=== PATIENT | male | born 1940 | race Caucasian/White ===

== ENCOUNTER 2019-08-20 18:58 | Inpatient (IN) | payer MEDICARE, OTHER ==
[~2019-08-20] VITALS: Ht 182.9 cm; Wt 65.8 kg
[2019-08-20 19:47] LABS: BASOPHILS % (AUTO) 0.6 % (0.0-2.0); HEMATOCRIT 29 % (39-51); HEMOGLOBIN 9.1 g/dL (13.5-17.5); LYMPHOCYTES # (AUTO) 0.8 /CMM (0.8-4.8); LYMPHOCYTES % (AUTO) 12.2 % (20.0-44.0); MEAN CORPUSCULAR HGB CONC 32 g/dl (31.0-36.0); MEAN CORPUSCULAR VOLUME 80 fL (80-96); MONOCYTES # (AUTO) 0.3 /CMM (0.1-1.30); NEUTROPHILS # (AUTO) 5.5 /CMM (1.8-8.9); NEUTROPHILS % (AUTO) 83.2 % (43.0-81.0); PLATELET COUNT (AUTO) 198 /CMM (150-450); RED BLOOD CELL COUNT(AUTO) 3.61 MIL/uL (4.5-6.0); WHITE BLOOD COUNT (AUTO) 6.6 K/uL (4.3-11.0)
[2019-08-20 19:56] LABS: CALCIUM, SERUM 8.9 mg/dL (8.5-10.1); CARBON DIOXIDE 26 mmol/L (21-32); CHLORIDE 103 mmol/L (98-107); CREATININE 1.9 mg/dL (0.6-1.3); GLUCOSE 252 mg/dL (74-106); POTASSIUM 3.9 mmol/L (3.5-5.1); SODIUM SERUM 139 mmol/L (136-145); UREA NITROGEN, BLOOD 52 mg/dL (7-18)
[2019-08-20 20:01] LABS: ALANINE AMINOTRANSFERASE 42 U/L (12-78); ALKALINE PHOSPHATASE 69 U/L (46-116); ASPARTATE AMINOTRANSFERASE 40 U/L (15-37); BILIRUBIN,DIRECT 0.4 mg/dL (0.0-0.2)
--- NOTE | 2019-08-20 20:02 | NUR ---
PATIENT CAME E R BED 4 C/O UNRESPONSIVE PER EMS REPORT. PATIENT IS CONTRACTED. ALERT AND AWAKE X0. NO SOB. BREATHING EVENLY AND UNLABORED ON ROOM AIR. CONNECTED TO MONTIOR.
[2019-08-20 20:03] LABS: APPEARANCE,URINE Slightly Cloudy (CLEAR); BILIRUBIN,URINE Negative (NEGATIVE); BLOOD, URINE Moderate Ery/uL (NEGATIVE); COLOR,URINE Dark (YELLOW); KETONES,URINE Negative (NEGATIVE); LEUKOCYTE ESTERASE ,URINE Large (NEGATIVE); NITRITE, URINE Negative (NEGATIVE); PH,URINE 5.5 (5.0-8.0); PROTEIN,URINE 100 mg/dl (NEGATIVE); UGLUCOSE Negative (NEGATIVE); UROBILINOGEN,URINE 0.2 EU/dL (0.2)
--- NOTE | 2019-08-20 20:04 | NUR ---
BLOOD AND URINE COLLECTED AND SENT TO LAB.
--- NOTE | 2019-08-20 20:05 | NUR ---
PATIENT TAKEN TO CT.
--- NOTE | 2019-08-20 20:10 | NUR ---
PATIENT RETURNED FROM CT.
[2019-08-20 20:15] LABS: SERUM AMMONIA 17 umol/L (11-32)
[2019-08-20 20:16] LABS: BACTERIA,URINE Many /HPF (None Seen); SQUAMOUS EPITHELIAL CELL,UR Moderate /HPF (None Seen); WBC,URINE 21-50 /HPF (0-3)
[2019-08-20 20:17] LABS: YEAST,URINE Moderate /HPF (None Seen)
[2019-08-20 20:27] LABS: THYROID STIMULATING HORMONE 4.942 uIU/mL (0.358-3.74)
[2019-08-20] MEDS ORDERED: PIPERACILLIN /TAZOBACTAM 3.375 G VIAL IV ONE (20:28)
--- NOTE | 2019-08-20 20:29 | NUR ---
DAUGHTER'S NUMBER , OTHER DAUGHTER
[2019-08-20] MEDS ORDERED: PIPERACILLIN /TAZOBACTAM 3.375 G in IV D5W 50 ML IV ONE (20:30)
[2019-08-20] MEDS ORDERED: MORPHINE SULFATE INJ 2 MG/ML DISP.SYRIN IV PRN (21:30)
[2019-08-20] MEDS ORDERED: MAG HYDROX/AL HYDROX/SIMETH 30 ML UDC PO PRN (21:30)
[2019-08-20] MEDS ORDERED: TEMAZEPAM 15 MG CAPSULE PO PRN (21:30)
[2019-08-20] MEDS ORDERED: DEXTROSE 50%-WATER 50 ML DISP.SYRIN IV PRN (21:30)
[2019-08-20] MEDS ORDERED: HYDROCODONE/APAP 5/325MG 1 EACH TABLET PO PRN (21:30)
[2019-08-20] MEDS ORDERED: MAGNESIUM HYDROXIDE 30 ML UDC PO PRN (21:30)
[2019-08-20] MEDS ORDERED: Z GUARD REMEDY 2 OZ OINT TP PRN (21:30)
[2019-08-20] MEDS ORDERED: ONDANSETRON HCL/PF 4 MG/2 ML VIAL IVP PRN (21:30)
--- NOTE | 2019-08-20 22:50 | NUR ---
REPORT GIVEN TO JUANA VIEYRA FOR HUNTER.
--- NOTE | 2019-08-21 00:16 | NUR ---
[facility]ma in [facility] - 08/21/19 at 0017 by DANISH FIELD ARTILLERY OFFICER TO TECH
[2019-08-21 00:21] VITALS: BP 131/69
--- NOTE | 2019-08-21 00:21 | NUR ---
MS/RN NEW ADMISSION NOTES/RN RECEIVED PATIENT FROM ER ON A GURNEY ACCOMPANIED BY RN . NON VERBAL, ON ROOM AIR, RESPIRATIONS EVEN AND UNLABORED, WAS BROUGHT FROM HOME DUE TO AMS, PATIENT IS STILL UNABLE VERBALIZE NEEDS BUT OPENS EYES, EXTENSIVE ASSISTANCE PATIENT HAS CONTRACTED BUE AND WEAK LEGS, INCONTINENT, WITH SOME REDNESS ON HEEL. 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 DX FOR UTI SECONDARY TO HANG AND FAILURE TO THRIVE, IV ON RIGHT WRIST. BELONGINGS CHECK, WINNIE GARLAND MD, WILL MONITOR.
--- NOTE | 2019-08-21 00:27 | NUR ---
PATIENT IS TRANSFERRED TO ROOM.
[2019-08-21 00:30] VITALS: BP 131/69
[2019-08-21] MEDS: BLOOD SUGAR DIAGNOSTIC 1 EACH STRIP IN SCH ×5 (01:19→21:02)
--- NOTE | 2019-08-21 01:23 | NUR ---
BLOOD SUGAR CHECK AT 272, PATIENT CAN OPEN EYES BUT NOT FULLY AWAKE.
[2019-08-21] MEDS ORDERED: PIPERACILLIN /TAZOBACTAM 3.375 G VIAL IV ONE (01:26)
[2019-08-21] MEDS: IV NS 0.9% 1,000 ML IV PRN ×2 (01:33→22:09)
[2019-08-21] MEDS ORDERED: ZOSYN IVPB 3.375 G in IV D5W 50ml IV SCH (02:00)
--- NOTE | 2019-08-21 06:35 | NUR ---
MS/RN CLOSING NOTES PATIENT IN BED, ABLE TO SLEEP DURING THE NIGHT, NON VERBAL AND OPENS EYE. CONTRACTED WITH BUE AND ATTENDED TO ALL NEEDS. MONITORED FOR ANY CHANGES AND REPORT FOR ANY CHANGES. BED LOCKED, CALL LIGHTS WITHIN REACH. WILL ENDORSE TO AM RN FOR HUNTER. IV NS AT 100 ML INFUSING ON RIGHT WRIST. KEPT COMFORTABLE.
[2019-08-21 07:03] LABS: BASOPHILS % (AUTO) 0.3 % (0.0-2.0); HEMATOCRIT 28 % (39-51); HEMOGLOBIN 8.9 g/dL (13.5-17.5); LYMPHOCYTES # (AUTO) 1.4 /CMM (0.8-4.8); LYMPHOCYTES % (AUTO) 19.3 % (20.0-44.0); MEAN CORPUSCULAR HGB CONC 32 g/dl (31.0-36.0); MEAN CORPUSCULAR VOLUME 80 fL (80-96); MONOCYTES # (AUTO) 0.6 /CMM (0.1-1.30); MONOCYTES % (AUTO) 8.4 % (2.0-12.0); NEUTROPHILS # (AUTO) 5.1 /CMM (1.8-8.9); PLATELET COUNT (AUTO) 168 /CMM (150-450); RED BLOOD CELL COUNT(AUTO) 3.51 MIL/uL (4.5-6.0); WHITE BLOOD COUNT (AUTO) 7.1 K/uL (4.3-11.0)
--- NOTE | 2019-08-21 07:27 | NUR ---
rn opening notes Patient received on room air, no sob noted, patient asleep at this time. non verbal. R wrist 20 present with IV NS @ 100 ml per hour. Bed at the lowest setting, call light within reach, side rails up x2.
[2019-08-21 07:37] LABS: CALCIUM, SERUM 8.6 mg/dL (8.5-10.1); CARBON DIOXIDE 22 mmol/L (21-32); CHLORIDE 105 mmol/L (98-107); CREATININE 1.9 mg/dL (0.6-1.3); GLUCOSE 284 mg/dL (74-106); MAGNESIUM 2.1 mg/dL (1.8-2.4); PHOSPHORUS 3.4 mg/dL (2.5-4.9); POTASSIUM 3.9 mmol/L (3.5-5.1); SODIUM SERUM 140 mmol/L (136-145); UREA NITROGEN, BLOOD 53 mg/dL (7-18)
[2019-08-21 08:00] VITALS: BP 152/63
[2019-08-21 08:13] LABS: BAND % (MANUAL) 4 % (0.0-5.0); LYMPHOCYTES % (MANUAL) 18 % (16-48); MONOCYTES % (MANUAL) 4 % (0-11.0); NEUTROPHILS % (MANUAL) 73 (42-76); PROMYELOCYTES % 1 % (0-0)
[2019-08-21] MEDS: PIPERACILLIN /TAZOBACTAM 3.375 G in IV D5W 100 ML IV SCH ×2 (08:54→16:03)
[2019-08-21 09:11] LABS: CHOLESTEROL 99 mg/dL (<200); HDL CHOLESTEROL 21 mg/dL (40-60); LDL 57 mg/dL (0-99); TRIGLYCERIDES 136 mg/dL (30-150)
[2019-08-21] MEDS ORDERED: FURO40TA5 PO (09:51)
[2019-08-21] MEDS ORDERED: INSU100I26 SQ (09:51)
[2019-08-21] MEDS ORDERED: CLOP75TA15 (09:51)
[2019-08-21] MEDS ORDERED: ASPI-1169 PO (09:51)
[2019-08-21] MEDS ORDERED: INSU3INS3 SQ (09:51)
--- NOTE | 2019-08-21 09:52 | NUR ---
MOULDER OPERATOR/MED RECON HOME MEDICATION INFO UPDATED. [phone][facility]
--- NOTE | 2019-08-21 11:44 | NUR ---
rn notes Patient awaiting for speech eval. Unable to feed patient due to AMS. battery charger conveyor line aware of no feeding due to this. No insulin given due to unable to eat at this time.
[2019-08-21 16:00] VITALS: BP 147/56
--- NOTE | 2019-08-21 16:34 | NUR ---
rn notes BG of 333, kiln charger nurse aware. Cannot give insulin due to patient unable to swallow. Swallow eval still pending.
--- NOTE | 2019-08-21 18:18 | NUR ---
rn closing notes patient remains a/o x0 at this time, came here for AMS and remains AMS. NPO till swallow eval is done due to AMS. BG at 300+ and charge nurse is aware and agrees to keep patient NPO and not give coverage until swallow is given. IV NS @ 100 ml per hour R wrist 20 present. Bed at the lowest setting, call light within reach, side rails up x2. Will give report to NOC RN for HUNTER bedside.
[2019-08-21 20:47] VITALS: BP 144/57
[2019-08-21] MEDS: INSULIN REGULAR, HUMAN 100 UNIT/ML 3 ML VIAL SQ PRN (21:23)
[2019-08-21] MEDS ORDERED: DEXTROSE 50%-WATER 50 ML DISP.SYRIN IV PRN (21:30)
[2019-08-21] MEDS ORDERED: INSULIN REGULAR, HUMAN 100 UNIT/ML 3 ML VIAL SQ PRN (21:30)
--- NOTE | 2019-08-21 21:30 | NUR ---
MS/MARKETING AND COMMUNICATIONS OFFICER - MED NOTE SPOKE WITH DR. WINNIE DIALLO TO COVER PT WITH INSULIN PER SLIDING SCALE. WILL CONTINUE TO MONITOR BLOOD GLUCOSE.
[2019-08-21] MEDS ORDERED: BLOOD SUGAR DIAGNOSTIC 1 EACH STRIP IN SCH (22:00)
[2019-08-22] MEDS: PIPERACILLIN /TAZOBACTAM 3.375 G in IV D5W 100 ML IV SCH ×3 (00:59→16:22)
[2019-08-22] MEDS: BLOOD SUGAR DIAGNOSTIC 1 EACH STRIP IN SCH ×4 (06:32→23:52)
[2019-08-22] MEDS: INSULIN REGULAR, HUMAN 100 UNIT/ML 3 ML VIAL SQ PRN ×3 (06:35→17:43)
[2019-08-22 07:39] LABS: BASOPHILS % (AUTO) 0.5 % (0.0-2.0); EOSINOPHILS % (AUTO) 0.1 % (0.0-6.0); HEMATOCRIT 25 % (39-51); HEMOGLOBIN 8.1 g/dL (13.5-17.5); LYMPHOCYTES # (AUTO) 0.9 /CMM (0.8-4.8); LYMPHOCYTES % (AUTO) 18.3 % (20.0-44.0); MEAN CORPUSCULAR HGB CONC 32 g/dl (31.0-36.0); MEAN CORPUSCULAR VOLUME 79 fL (80-96); MONOCYTES # (AUTO) 0.3 /CMM (0.1-1.30); MONOCYTES % (AUTO) 5.9 % (2.0-12.0); NEUTROPHILS # (AUTO) 3.6 /CMM (1.8-8.9); NEUTROPHILS % (AUTO) 75.2 % (43.0-81.0); PLATELET COUNT (AUTO) 144 /CMM (150-450); RED BLOOD CELL COUNT(AUTO) 3.21 MIL/uL (4.5-6.0); WHITE BLOOD COUNT (AUTO) 4.7 K/uL (4.3-11.0)
[2019-08-22 08:00] VITALS: BP 113/59
--- NOTE | 2019-08-22 08:00 | NUR ---
MS RN OPENING NOTES RECEIVED PATIENT IN BED, A/0 X0, BREATHING AT ROOM AIR, NO SIGNS OF RESPIRATORY DISTRESS, RIGHT WRIST #20 NS AT 100ML/HR, INFUSING WELL, SIDE RAILS UP.
[2019-08-22 08:08] LABS: ALANINE AMINOTRANSFERASE 31 U/L (12-78); ALBUMIN 2.4 g/dL (3.4-5.0); ALKALINE PHOSPHATASE 60 U/L (46-116); ASPARTATE AMINOTRANSFERASE 31 U/L (15-37); BILIRUBIN,TOTAL 0.6 mg/dL (0.2-1.0); CALCIUM, SERUM 8.4 mg/dL (8.5-10.1); CARBON DIOXIDE 23 mmol/L (21-32); CHLORIDE 111 mmol/L (98-107); CREATININE 1.8 mg/dL (0.6-1.3); GLUCOSE 291 mg/dL (74-106); MAGNESIUM 2.3 mg/dL (1.8-2.4); PHOSPHORUS 2.6 mg/dL (2.5-4.9); POTASSIUM 3.3 mmol/L (3.5-5.1); SODIUM SERUM 144 mmol/L (136-145); TOTAL PROTEIN, SERUM 7.1 g/dL (6.4-8.2); UREA NITROGEN, BLOOD 46 mg/dL (7-18)
[2019-08-22 08:10] LABS: CREATINE KINASE, TOTAL 62 U/L (39-308)
[2019-08-22] MEDS ORDERED: POTASSIUM CHLORIDE 20 MEQ TAB.PRT.SR PO SCH (10:30)
[2019-08-22] MEDS: POTASSIUM CL. PREMIX PERIPHER. 50 ML IV SCH ×2 (12:46→14:16)
[2019-08-22] MEDS ORDERED: DEXTROSE 50%-WATER 50 ML DISP.SYRIN IV PRN (13:00)
[2019-08-22 16:00] VITALS: BP 132/59
--- NOTE | 2019-08-22 18:59 | NUR ---
MS RN CLOSING NOTES ENDORSED PATIENT TO INSECTICIDE EXPERT NURSE IN BED, OBTUNDED, NON-VERBAL, RESPOND TO STIMULI, BREATHING AT ROOM AIR, NO SIGNS OF RESPIRATORY DISTRESS NOTED, NPO FOR SWALLOW EVAL, RIGHT WRIST #20 NS AT 100ML/HR, INFUSING WELL, NO SIGNS OF REDNESS OR INFILTRATION NOTED, SIDE RAILS UP FOR SAFETY.
[2019-08-22 19:33] LABS: APPEARANCE,URINE CLOUDY (CLEAR); BILIRUBIN,URINE NEGATIVE (NEGATIVE); BLOOD, URINE LARGE Ery/uL (NEGATIVE); COLOR,URINE YELLOW (YELLOW); KETONES,URINE NEGATIVE (NEGATIVE); LEUKOCYTE ESTERASE ,URINE LARGE (NEGATIVE); NITRITE, URINE NEGATIVE (NEGATIVE); PH,URINE 5.5 (5.0-8.0); PROTEIN,URINE 100 mg/dl (NEGATIVE); UGLUCOSE NEGATIVE (NEGATIVE); UROBILINOGEN,URINE 0.2 EU/dL (0.2)
[2019-08-22 19:45] LABS: BACTERIA,URINE 4+ /HPF (None Seen); RBC,URINE 51-80 /HPF (0-2); SQUAMOUS EPITHELIAL CELL,UR 0-2 /HPF (None Seen); WBC,URINE TOO NUMEROUS TO COUN /HPF (0-3)
[2019-08-22 19:46] LABS: CREATININE, URINE 86.8 MG/DL (30.0-125.0); URINE TOTAL PROTEIN 146.7 mg/dL (0-11.9)
[2019-08-22 20:00] VITALS: BP 124/58
--- NOTE | 2019-08-22 20:00 | NUR ---
MS/RN OPENING NOTES RECEIVED PATIENT IN BED, RESTING IN BED ON ROOM AIR, RESPIRATIONS EVEN AND UNLABORED, SKIN WARM TO TOUCH, ABLE TO AROUSE , MONITORING FOR ANY CHANGES. ON IV FLUIDS INFUSING OF NS AT 100ML/HR. RECEIVED ENDORSEMENT FROM AM RN FOR HUNTER. PATIENT AWAITING FOR SWALLOW EVAL AT THIS TIME. BED LOCKED, CALL LIGHTS WITHIN REACH. WILL CONTINUE CARE AND MONITOR.
[2019-08-22 20:29] LABS: EOSINOPHIL,URINE None Seen
[2019-08-22] MEDS: IV NS 0.9% 1,000 ML IV PRN (22:19)
[2019-08-23] MEDS: PIPERACILLIN /TAZOBACTAM 3.375 G in IV D5W 100 ML IV SCH ×2 (00:02→08:35)
[2019-08-23] MEDS: BLOOD SUGAR DIAGNOSTIC 1 EACH STRIP IN SCH ×4 (05:11→23:44)
[2019-08-23] MEDS: INSULIN REGULAR, HUMAN 100 UNIT/ML 3 ML VIAL SQ PRN ×4 (05:22→23:46)
--- NOTE | 2019-08-23 06:42 | NUR ---
327-2 MS/RN CLOSING NOTES PATIENT ABLE TO SLEEP DURING THE SHIFT. RESTING COMFORTABLY ON ROOM AIR. IV FLUIDS INFUSING AT 100 ML/HR, IV ANTIBIOTIC ADMINISTERED WITH NO S/S OF ADVERSE REACTION. KEPT COMFORTABLE. TURNED AND REPOSITIONED. ATTENDED TO ALL NEEDS. IV SITE ON RIGHT WRIST PATEENT. BED LOCKED, CALL LIGHTS WITHIN REACH. WILL MONITOR.
--- NOTE | 2019-08-23 07:07 | NUR ---
MS RN OPENING NOTES RECEIVED PT IN BED AWAKE AT THIS TIME. PT IS NON VERBAL, RESPIRATIONS ARE EVEN AND UNLABORED. NO S/S OF ANY ACUTE DISTRESS NOTED. IV ACCES TO RIGHT WRIST #20 INTACT, PATENT AND INFUSING NS AT 100ML/HR, INFUSING WELL, BED IN LOWEST LOCKED POSITION, BED ALARM ON, SIDE RAILS UP, CALL LIGHT WITHIN REACH. WILL CONTINUE TO MONITOR.
[2019-08-23 08:00] VITALS: BP 122/50
[2019-08-23 09:12] LABS: BASOPHILS % (AUTO) 0.6 % (0.0-2.0); EOSINOPHILS % (AUTO) 0.8 % (0.0-6.0); HEMATOCRIT 23 % (39-51); HEMOGLOBIN 7.2 g/dL (13.5-17.5); LYMPHOCYTES # (AUTO) 1.2 /CMM (0.8-4.8); MEAN CORPUSCULAR HGB CONC 32 g/dl (31.0-36.0); MEAN CORPUSCULAR VOLUME 79 fL (80-96); MONOCYTES # (AUTO) 0.3 /CMM (0.1-1.30); MONOCYTES % (AUTO) 5.8 % (2.0-12.0); NEUTROPHILS # (AUTO) 3.2 /CMM (1.8-8.9); NEUTROPHILS % (AUTO) 66.8 % (43.0-81.0); PLATELET COUNT (AUTO) 123 /CMM (150-450); RED BLOOD CELL COUNT(AUTO) 2.87 MIL/uL (4.5-6.0); WHITE BLOOD COUNT (AUTO) 4.8 K/uL (4.3-11.0)
[2019-08-23 09:57] LABS: CARBON DIOXIDE 23 mmol/L (21-32); CHLORIDE 116 mmol/L (98-107); CREATININE 1.7 mg/dL (0.6-1.3); GLUCOSE 194 mg/dL (74-106); MAGNESIUM 2.2 mg/dL (1.8-2.4); PHOSPHORUS 2.2 mg/dL (2.5-4.9); POTASSIUM 3.5 mmol/L (3.5-5.1); SODIUM SERUM 149 mmol/L (136-145); UREA NITROGEN, BLOOD 39 mg/dL (7-18)
--- NOTE | 2019-08-23 11:00 | NUR ---
PT WAS SEEN BY PHILIPP, SPEECH THERAPIST, FOR SWALLOW EVAL. SPEECH THERAPIST ORDERED PUREED AND THICKENED LIQUIDS. DR. BURDICK WAS MADE AWARE. WILL CONTINUE TO MONITOR FOR ASPIRATION PRECAUTIONS
[2019-08-23 11:07] LABS: PTH, INTACT 20 pg/mL (15-65)
[2019-08-23] MEDS ORDERED: K PHOS NEUTRAL 250 MG TABLET PO ONE (11:30)
[2019-08-23] MEDS ORDERED: POTASSIUM PHOSPHATE MM 7.5 MMOL in IV NS 0.9% 100 ML IV SCH (12:00)
[2019-08-23 16:00] VITALS: BP 114/55
[2019-08-23 18:43] LABS: OCCULT BLOOD STOOL NEGATIVE (NEGATIVE)
--- NOTE | 2019-08-23 19:07 | NUR ---
MS RN CLOSING NOTES PT IN BED AWAKE AT THIS TIME WITH HOB ELEVATED TO SEMI FOWLERS POSITION. PT IS NON VERBAL, RESPIRATIONS ARE EVEN AND UNLABORED. PT REMAINED STABLE THOUGH OUT SHIFT. NO S/S OF ANY ACUTE DISTRESS NOTED. IV ACCES TO RIGHT WRIST #20 INTACT AND PATENT. SKIN KEPT CLEAN AND DRY. SAFETY AND ASPIRATION PRECAUTIONS IN PLACE. BED IN LOWEST LOCKED POSITION, BED ALARM ON, SIDE RAILS UP, CALL LIGHT WITHIN REACH. WILL ENDORSE TO NIGHT NURSE FOR HUNTER
--- NOTE | 2019-08-23 19:45 | NUR ---
MS RN OPENING NOTES RECEIVED PATIENT IN BED NON-VERBAL. BREATHING REGULAR AND UNLABORED ON ROOM AIR. RIGHT WRIST G20 IV LINE INTACT AND PATENT, INFUSING WELL WITH NO BLEEDING OR S/S OF INFILTRATION NOTED. NO S/S OF PAIN/DISCOMFORT SEEN AT THIS TIME. ON ASPIRATION PRECAUTION. BED LOW AND LOCKED ON SEMI FOWLERS POSITION. CALL LIGHT IN REACH. WILL CONTINUE TO MONITOR.
[2019-08-23 20:00] VITALS: BP_SYST 110; BP_DIAS 44; BP_DIAS 50
--- NOTE | 2019-08-24 | NUR ---
MS RN NOTES BS 180mg/dl, 3UNITS REGULAR INSULIN GIVEN SQ. THICKENED JUICE GIVEN. WILL CONTINUE TO MONITOR.
[2019-08-24] MEDS: BLOOD SUGAR DIAGNOSTIC 1 EACH STRIP IN SCH ×4 (05:36→23:07)
[2019-08-24] MEDS: INSULIN REGULAR, HUMAN 100 UNIT/ML 3 ML VIAL SQ PRN ×4 (05:36→23:12)
[2019-08-24 06:10] LABS: *SPE A/G RATIO 0.6 (0.7-1.7); *SPE ALBUMIN 2.5 g/dL (2.9-4.4); *SPE ALPHA-1-GLOBULIN 0.3 g/dL (0.0-0.4); *SPE ALPHA-2-GLOBULIN 0.9 g/dL (0.4-1.0); *SPE BETA GLOBULIN 0.9 g/dL (0.7-1.3); *SPE GLOBULIN, TOTAL 3.9 g/dL (2.2-3.9); *SPE M-SPIKE Not Observed g/dL (Not Observed); *SPEGAMMA GLOBULIN 1.8 g/dL (0.4-1.8)
--- NOTE | 2019-08-24 06:30 | NUR ---
MS RN CLOSING NOTES PATIENT IN BED ALERT AND ORIENTED X 1. AFEBRILE WITH NO S/S OF DISTRESS OBSERVED. RIGHT WRIST G20 IV LINE PATENT AND INFUSING WELL. NO S/S OF PAIN/DISCOMFORT SEEN THE WHOLE SHIFT. MAINTAINED ON ASPIRATION PRECAUTION. BED LOW AND LOCKED ON SEMI FOWLERS POSITION. CALL LIGHT IN REACH. WILL ENDORSE TO MORNING SHIFT FOR HUNTER.
--- NOTE | 2019-08-24 07:08 | NUR ---
MS RN OPENING NOTES RECEIVED PT IN BED AWAKE AT THIS TIME. PT IS NON VERBAL, RESPIRATIONS ARE EVEN AND UNLABORED. NO S/S OF ANY ACUTE DISTRESS NOTED. IV ACCES TO RIGHT WRIST #20 INTACT AND PATENT WITH NO S/S OF INFILTRATION. ASPIRATION AND SAFETY PRECAUTIONS IN PLACE. HOB ELEVATED, BED IN LOWEST LOCKED POSITION, BED ALARM ON, SIDE RAILS UP, CALL LIGHT WITHIN REACH. WILL CONTINUE TO MONITOR.
[2019-08-24 08:00] VITALS: BP 123/50
[2019-08-24 08:18] LABS: CALCIUM, SERUM 8.3 mg/dL (8.5-10.1); CARBON DIOXIDE 22 mmol/L (21-32); CHLORIDE 119 mmol/L (98-107); CREATININE 1.6 mg/dL (0.6-1.3); GLUCOSE 175 mg/dL (74-106); PHOSPHORUS 2.9 mg/dL (2.5-4.9); POTASSIUM 3.7 mmol/L (3.5-5.1); SODIUM SERUM 152 mmol/L (136-145); UREA NITROGEN, BLOOD 39 mg/dL (7-18)
[2019-08-24] MEDS: IV D5/0.45 NACL 1,000 ML IV PRN ×2 (08:33→22:40)
--- NOTE | 2019-08-24 10:00 | NUR ---
PT REMOVED IV ACCESS, NO INFILTRATION OR BLEEDING NOTED. NEW IV ACCESS INSERTED TO LEFT HAND G#20, INTACT AND PATENT
--- NOTE | 2019-08-24 12:00 | NUR ---
PT HAD TEMP OF 99.2. COOLING MEASURES PUT IN PLACE. ICE PACK UNDER ARMS, SHEETS/BLANKET TAKEN OFF. WILL CONTINUE TO MONITOR
--- NOTE | 2019-08-24 12:40 | NUR ---
REASSESSED PT TEMP AFTER COOLING MEASURES. TEMP NOW AT 98.9.
[2019-08-24 16:00] VITALS: BP 121/65
--- NOTE | 2019-08-24 16:00 | NUR ---
PT HAD TEMP OF 99.4. COOLING MEASURES PUT IN PLACE. ICE PACK UNDER ARMS, SHEETS/BLANKET TAKEN OFF. WILL CONTINUE TO MONITOR
[2019-08-24] MEDS: ACETAMINOPHEN 325 MG TABLET PO PRN (18:42)
--- NOTE | 2019-08-24 19:05 | NUR ---
MS RN CLOSING NOTES PT IN BED AWAKE AT THIS TIME. PT REMAINED STABLE THROUGH OUT THE SHIFT. RESPIRATIONS ARE EVEN AND UNLABORED. NO S/S OF ANY ACUTE DISTRESS NOTED. PT KEPT CLEAN AND DRY. ALL NEEDS PROVIDED ANTICIPATED. PT REPOSITION Q2HRS, PRN AND PER PROTOCOL. ASPIRATION AND SAFETY PRECAUTIONS IN PLACE. HOB ELEVATED, BED IN LOWEST LOCKED POSITION, BED ALARM ON, SIDE RAILS UP, CALL LIGHT WITHIN REACH. WILL CONTINUE TO MONITOR.
--- NOTE | 2019-08-24 19:10 | NUR ---
RN medsurg opening notes Received Pt from morning nurse. Pt is resting in bed comfortably. Pt is non verbal. Respiration is normal. No SOB. No S/S of distress noted. IV sites at L hand # 20 is clean, intact and infusing well D5 1/2NS @ 75 ml/hr. Safety precautions is maintained. Bed at low position, brakes locked, HOB elevated, side rails up#3 and call light is within reach. Will continue to monitor.
--- NOTE | 2019-08-24 19:15 | NUR ---
REASSESS TEMP AFTER COOLING MEASURES. TEMP STILL AT 99.4. ADMINISTERED TYLENOL 650MG PO AT 1842. REASSESSED PT AT 1915 AND TEMP IS 98.2
[2019-08-24 20:00] VITALS: BP 110/51
[2019-08-25] MEDS: BLOOD SUGAR DIAGNOSTIC 1 EACH STRIP IN SCH ×4 (05:11→23:52)
[2019-08-25] MEDS: INSULIN REGULAR, HUMAN 100 UNIT/ML 3 ML VIAL SQ PRN ×3 (05:15→18:13)
--- NOTE | 2019-08-25 07:00 | NUR ---
MS RN OPENING NOTES RECEIVED PT IN BED ASLEEP AT THIS TIME. EASILY AROUSED. PT IS NON VERBAL, RESPIRATIONS ARE EVEN AND UNLABORED. NO S/S OF ANY ACUTE DISTRESS NOTED. IV ACCES TO LEFT HAND G#20 INTACT AND PATENT WITH NO S/S OF INFILTRATION. ASPIRATION AND SAFETY PRECAUTIONS IN PLACE. HOB ELEVATED, BED IN LOWEST LOCKED POSITION, BED ALARM ON, SIDE RAILS UP, CALL LIGHT WITHIN REACH. WILL CONTINUE TO MONITOR.
--- NOTE | 2019-08-25 07:00 | NUR ---
RN medsurg closing notes Pt is resting in bed comfortably. Pt is non verbal. Respiration is normal. No SOB. No S/S of distress noted. IV sites at L hand # 20 is clean, intact and infusing well D5 1/2NS @ 75 ml/hr. VS is stable. Afebrile. Routine meds were given as ordered. Skin care provided. Turned and repositioned Q 2 HR. Kept Pt clean, dry and comfortable. All needs met and attended. Safety precautions is maintained. Bed at low position, brakes locked, HOB elevated, side rails up#3 and call light is within reach. Will endorse to morning nurse for HUNTER.
[2019-08-25 08:15] VITALS: BP 117/48
[2019-08-25] MEDS: ASPIRIN 81 MG TAB.CHEW PO SCH (08:45)
[2019-08-25] MEDS: CLOPIDOGREL BISULFATE 75 MG TABLET PO SCH (08:45)
[2019-08-25 10:42] LABS: BASOPHILS % (AUTO) 0.5 % (0.0-2.0); EOSINOPHILS % (AUTO) 1.5 % (0.0-6.0); HEMATOCRIT 25 % (39-51); HEMOGLOBIN 7.7 g/dL (13.5-17.5); LYMPHOCYTES % (AUTO) 36.7 % (20.0-44.0); MEAN CORPUSCULAR HGB CONC 32 g/dl (31.0-36.0); MEAN CORPUSCULAR VOLUME 80 fL (80-96); MONOCYTES # (AUTO) 0.4 /CMM (0.1-1.30); MONOCYTES % (AUTO) 7.7 % (2.0-12.0); NEUTROPHILS % (AUTO) 53.6 % (43.0-81.0); PLATELET COUNT (AUTO) 143 /CMM (150-450); RED BLOOD CELL COUNT(AUTO) 3.07 MIL/uL (4.5-6.0); WHITE BLOOD COUNT (AUTO) 5.6 K/uL (4.3-11.0)
[2019-08-25 11:02] LABS: ALANINE AMINOTRANSFERASE 21 U/L (12-78); ALBUMIN 2.4 g/dL (3.4-5.0); ALKALINE PHOSPHATASE 57 U/L (46-116); ASPARTATE AMINOTRANSFERASE 19 U/L (15-37); BILIRUBIN,TOTAL 0.3 mg/dL (0.2-1.0); CALCIUM, SERUM 8.3 mg/dL (8.5-10.1); CARBON DIOXIDE 23 mmol/L (21-32); CHLORIDE 119 mmol/L (98-107); CREATININE 1.4 mg/dL (0.6-1.3); GLUCOSE 279 mg/dL (74-106); MAGNESIUM 2.3 mg/dL (1.8-2.4); PHOSPHORUS 2.6 mg/dL (2.5-4.9); POTASSIUM 3.6 mmol/L (3.5-5.1); SODIUM SERUM 154 mmol/L (136-145); TOTAL PROTEIN, SERUM 6.9 g/dL (6.4-8.2); UREA NITROGEN, BLOOD 29 mg/dL (7-18)
[2019-08-25] MEDS: ACETAMINOPHEN 325 MG TABLET PO PRN (15:34)
--- NOTE | 2019-08-25 15:42 | NUR ---
PATIENT HAVING A TEMP OF 103, COOLING MEASURES IN PLACE, TYLENOL 650MG PO PRN ADMINISTERED. CHARGE NURSE AND ZACHARYEXHAUST AND MUFFLER FITTER MADE AWARE. WILL REASSESS AND CONTINUE TO MONITOR
[2019-08-25 17:21] VITALS: BP 136/58
--- NOTE | 2019-08-25 17:30 | NUR ---
VETERINARY SCIENCE TEACHER NOTES PATIENT IN BED A/OX2 NO SOB OR DISCOMFORT NOTED AT THIS TIME. REPORT GIVEN TO PAYMENT REP NURSE.
--- NOTE | 2019-08-25 17:46 | NUR ---
REASSESSED PATIENT'S TEMPERATURE. TEMPERATURE TRENDING DOWN. TEMP IS 99.0 AT THIS TIME. WILL CONTINUE TO MONITOR
--- NOTE | 2019-08-25 18:25 | NUR ---
MS RN NOTES PT TRANSFERRED TO [facility] IN BED AT THIS TIME TO R/O COVID-19 DUE TO ELEVATED TEMPERATURE. BP 142,HR 105, RR 18 T 99.0, SPO2 98%. PT TRANSFERRED WITH SUPPLEMENTAL OXYGEN 2LPM VIA NC. REPORT GIVEN TO JARRELL FELICIANO. RESPIRATIONS ARE EVEN AND UNLABORED. PT KEPT CLEAN AND DRY. ALL NEEDS ATTENDED TO ANTICIPATED. IV ACCES TO RIGHT WRIST #20 INTACT AND PATENT WITH NO S/S OF INFILTRATION. ENDORSED TO [facility] NURSE FOR HUNTER
--- NOTE | 2019-08-25 18:45 | NUR ---
JUNIOR RECRUITER NOTES RECEIVED PATIENT IN BED A/OX 1 NON VERBAL. VITALS WITHIN NORMAL LIMITS. TEMPERATURE 99.2. HR 108. BP 127/59 O2 97%. BELONGINGS SIGN NOTED THAT ONE OF THE ITEMS IN BELONGINGS IS NOT WITH THE PATIENT([employer]). NO SOB AND DISCOMFORT AT THIS MOMENT.
[2019-08-25 19:50] LABS: C-REACTIVE PROTEIN 12.4 mg/dL (0.0-0.9)
[2019-08-25 20:00] VITALS: BP 94/40
[2019-08-25] MEDS: IV D5W 1,000 ML IV PRN (22:47)
--- NOTE | 2019-08-25 23:22 | NUR ---
RN NOTES VIELKA; SON IN LAW OF PATIENT; EXPLAINED THAT HE IS NOT ON THE LIST NEXT OF [facility]; CALLED SHRUTHI YUSUF AND GAVE PERMISSION TO GIVE INFORMATION TO VIELKA. FAMILY CONCERNED ABOUT WHY PATIENT WAS TRANSFERRED TO THE UNIT. QUESTIONS ANSWERED AND MADE HIM AWARE THAT PATIENT WAS TESTED FOR COVID 19; WILL BE ON ISOLATION PENDING RESULT. Addendum: 08/26/19 at 0416 by KASHMIR CARRILLO RN [id number] DTR CALLED TO INQUIRE ABOUT PATIENT. SHE IS CALLING FROM [facility] AND IS AWARE THAT [employer] IS RESPONSIBLE CONSTITUTION PARTY BUT WITH LANGUAGE BARRIER. REQUESTING TO BE ABLE TO HAVE THE PATIENT HEAR FAMILY'S VOICE. WILL COORDINATE WITH MORNING SHIFT; FAMILY WILL CALL LATER THIS MORNING FOR THAT.
[2019-08-25] MEDS: MICAFUNGIN SODIUM 100 MG in IV NS 0.9% 100 ML IV SCH (23:36)
[2019-08-26] VITALS: BP 104/44
[2019-08-26 04:00] VITALS: BP 117/47
[2019-08-26] MEDS: BLOOD SUGAR DIAGNOSTIC 1 EACH STRIP IN SCH ×3 (06:00→17:31)
[2019-08-26 06:46] LABS: BASOPHILS % (AUTO) 0.5 % (0.0-2.0); EOSINOPHILS % (AUTO) 0.6 % (0.0-6.0); HEMATOCRIT 24 % (39-51); HEMOGLOBIN 7.7 g/dL (13.5-17.5); LYMPHOCYTES # (AUTO) 0.9 /CMM (0.8-4.8); LYMPHOCYTES % (AUTO) 10.7 % (20.0-44.0); MEAN CORPUSCULAR HGB CONC 32 g/dl (31.0-36.0); MEAN CORPUSCULAR VOLUME 79 fL (80-96); MONOCYTES # (AUTO) 0.4 /CMM (0.1-1.30); MONOCYTES % (AUTO) 4.7 % (2.0-12.0); NEUTROPHILS # (AUTO) 7.1 /CMM (1.8-8.9); NEUTROPHILS % (AUTO) 83.5 % (43.0-81.0); PLATELET COUNT (AUTO) 145 /CMM (150-450); RED BLOOD CELL COUNT(AUTO) 3.02 MIL/uL (4.5-6.0); WHITE BLOOD COUNT (AUTO) 8.4 K/uL (4.3-11.0)
--- NOTE | 2019-08-26 07:09 | NUR ---
rn notes received patient awake in stable condition. vital signs wnl. [facility] and to rule out cov[facility] 19. alert and oriented, verbally able to communicate needs ( speaking). no complaint of pain or discomfort. in no apparent distress, breathing even and unlabored. kept clean and dry. will endorse to next shift for continuity of care. inserted iv on right hand, left hand iv site infiltrated. swab for covid done and brought to lab. spoke with daughter and explained the reason why patient was transferred to this unit. daughter also spoke to charge nurse and coffee supervisor.
[2019-08-26 07:23] LABS: ALANINE AMINOTRANSFERASE 24 U/L (12-78); ALBUMIN 2.4 g/dL (3.4-5.0); ALKALINE PHOSPHATASE 72 U/L (46-116); ASPARTATE AMINOTRANSFERASE 48 U/L (15-37); BILIRUBIN,TOTAL 0.6 mg/dL (0.2-1.0); CALCIUM, SERUM 8.2 mg/dL (8.5-10.1); CARBON DIOXIDE 20 mmol/L (21-32); CHLORIDE 118 mmol/L (98-107); CREATININE 1.8 mg/dL (0.6-1.3); GLUCOSE 292 mg/dL (74-106); MAGNESIUM 2.1 mg/dL (1.8-2.4); PHOSPHORUS 2.2 mg/dL (2.5-4.9); POTASSIUM 3.7 mmol/L (3.5-5.1); SODIUM SERUM 151 mmol/L (136-145); TOTAL PROTEIN, SERUM 6.9 g/dL (6.4-8.2); UREA NITROGEN, BLOOD 34 mg/dL (7-18)
--- NOTE | 2019-08-26 07:30 | NUR ---
Tele/RN Opening note Received patient oriented to self, able to responds all stimuli. Pt does no appears pain or any discomfort, skin is warm to touch, kept clean/dry, intact Iv site. Respiratory even and unlabored with room air, no sob or distress observed. Keep low portion of the bed with locked wheel and elevated head of bed. Call light within reach, will continue to monitor.
[2019-08-26 08:00] VITALS: BP 133/76
[2019-08-26] MEDS: ASPIRIN 81 MG TAB.CHEW PO SCH (08:38)
[2019-08-26] MEDS: CLOPIDOGREL BISULFATE 75 MG TABLET PO SCH (08:38)
[2019-08-26 12:00] VITALS: BP 128/70
[2019-08-26] MEDS: INSULIN REGULAR, HUMAN 100 UNIT/ML 3 ML VIAL SQ PRN ×2 (12:34→17:32)
[2019-08-26] MEDS ORDERED: K PHOS NEUTRAL 250 MG TABLET PO ONE (15:00)
[2019-08-26 16:00] VITALS: BP 130/80
[2019-08-26] MEDS: IV D5W 1,000 ML IV PRN (17:33)
--- NOTE | 2019-08-26 18:55 | NUR ---
Tele/RN Closing note Patient in bed, comfortably. Does no appears pain or discomfort, skin is warm to touch, kept clean/dry, intact IV site running IVF at 75ml/hr. Respiratory even and unlabored O2sat 97% with room air. Kept low position of the bed with locked wheel and elevated head of bed for secure airway. Call light within reach, will continue to endorse night stocker.
[2019-08-26 20:00] VITALS: BP 130/53
[2019-08-26] MEDS: MICAFUNGIN SODIUM 100 MG in IV NS 0.9% 100 ML IV SCH (20:31)
[2019-08-26] MEDS: ACETAMINOPHEN 325 MG TABLET PO PRN (21:02)
[2019-08-27] VITALS: BP 116/51
[2019-08-27] MEDS: BLOOD SUGAR DIAGNOSTIC 1 EACH STRIP IN SCH ×3 (00:42→12:15)
[2019-08-27] MEDS: INSULIN REGULAR, HUMAN 100 UNIT/ML 3 ML VIAL SQ PRN ×3 (00:45→12:19)
[2019-08-27 04:00] VITALS: BP_SYST 122; BP_DIAS 37; BP_DIAS 57
[2019-08-27] MEDS: IV D5W 1,000 ML IV PRN (05:58)
--- NOTE | 2019-08-27 06:13 | NUR ---
rn notes in bed, resting comfortably and in no apparent distress. breathing even and unlabored. vital signs wnl. alert and oriented x 2. Opens eyes, stimulated by touch. No physical manifestation of pain or discomfort. kept clean and dry. Daughter Ryan called, updated about her father's condition. all questions answered. no significant change of condition. will endorse to next shift for continuity of care.
--- NOTE | 2019-08-27 07:38 | NUR ---
MS/RN OPENING NOTES RECEIVED PATIENT SLEEPING ON BED BUT EASILY AROUSABLE. PATIENT DENIES PAIN AT THIS TIME. PATIENT IN NO APPARENT DISTRESS AT THIS TIME. IV ACCESS AT RIGHT HAND # 20G PATENT AND INTACT. IV FLUID OF D5W AT 75ML/HR ON AND INFUSING WELL. BED IN LOWEST POSITION, SIDE RAILS UP X2. CALL LIGHT WITHIN REACH. WILL CONTINUE TO MONITOR.
[2019-08-27] MEDS ORDERED: IV 1/2NS 1000 ML 1,000 ML IV PRN (07:40)
[2019-08-27 08:00] VITALS: BP 111/45
[2019-08-27 08:11] LABS: CALCIUM, SERUM 7.9 mg/dL (8.5-10.1); CARBON DIOXIDE 23 mmol/L (21-32); CHLORIDE 114 mmol/L (98-107); CREATININE 1.7 mg/dL (0.6-1.3); GLUCOSE 250 mg/dL (74-106); POTASSIUM 3.4 mmol/L (3.5-5.1); SODIUM SERUM 146 mmol/L (136-145); UREA NITROGEN, BLOOD 31 mg/dL (7-18)
[2019-08-27 08:53] VITALS: BP 111/45
[2019-08-27] MEDS: CLOPIDOGREL BISULFATE 75 MG TABLET PO SCH (09:18)
[2019-08-27] MEDS: ASPIRIN 81 MG TAB.CHEW PO SCH (09:18)
[2019-08-27 09:38] LABS: BASOPHILS % (AUTO) 0.5 % (0.0-2.0); EOSINOPHILS % (AUTO) 1.7 % (0.0-6.0); HEMATOCRIT 26 % (39-51); LYMPHOCYTES # (AUTO) 1.6 /CMM (0.8-4.8); LYMPHOCYTES % (AUTO) 19.7 % (20.0-44.0); MEAN CORPUSCULAR HGB CONC 31 g/dl (31.0-36.0); MEAN CORPUSCULAR VOLUME 80 fL (80-96); MONOCYTES # (AUTO) 0.6 /CMM (0.1-1.30); MONOCYTES % (AUTO) 7.5 % (2.0-12.0); NEUTROPHILS # (AUTO) 5.7 /CMM (1.8-8.9); NEUTROPHILS % (AUTO) 70.6 % (43.0-81.0); PLATELET COUNT (AUTO) 154 /CMM (150-450); RED BLOOD CELL COUNT(AUTO) 3.24 MIL/uL (4.5-6.0); WHITE BLOOD COUNT (AUTO) 8.1 K/uL (4.3-11.0)
[2019-08-27] MEDS ORDERED: K PHOS NEUTRAL 250 MG TABLET PO ONE (11:00)
[2019-08-27] MEDS ORDERED: POTASSIUM CHLORIDE 10 MEQ TABLET.SA PO ONE (11:30)
[2019-08-27 12:00] VITALS: BP 133/48
[2019-08-27] MEDS ORDERED: FLUC200T8 PO (12:49)
[2019-08-27 16:07] VITALS: BP 111/50
--- NOTE | 2019-08-27 16:52 | NUR ---
TELE/RN NOTES PATIENT IS ALERT AND ORIENTED X2. PATIENT IN NO APPARENT DISTRESS NOTED. PATIENT NO SIGN AND SYMPTOM OF PAIN NOTED. IN ROOM AIR AND SATURATION IS AT 100%. RESPIRATION REGULAR AND UNLABORED. ALL DUE MEDICATION WAS GIVEN. SEEN AND EXAMINED BY MD WITH ORDERS MADE AND CARRIED OUT. PATIENT LEFT THE HOSPITAL IN MEDICALLY STABLE CONDITION. PATIENT DISCHARGED TO HOME AT 1610 AND HEALTH AND WELLNESS ADVISOR BY 2 EMT VIA AMBULANCE.
[2019-08-27 17:38] LABS: APPEARANCE,URINE CLOUDY (CLEAR); BILIRUBIN,URINE NEGATIVE (NEGATIVE); BLOOD, URINE LARGE Ery/uL (NEGATIVE); COLOR,URINE YELLOW (YELLOW); KETONES,URINE NEGATIVE (NEGATIVE); LEUKOCYTE ESTERASE ,URINE MODERATE (NEGATIVE); NITRITE, URINE NEGATIVE (NEGATIVE); PH,URINE 5.5 (5.0-8.0); PROTEIN,URINE 100 mg/dl (NEGATIVE); UGLUCOSE 250 MG/DL mg/dL (NEGATIVE); UROBILINOGEN,URINE 0.2 EU/dL (0.2)
[2019-08-27 17:54] LABS: BACTERIA,URINE 3+ /HPF (None Seen); RBC,URINE 21-50 /HPF (0-2); SQUAMOUS EPITHELIAL CELL,UR 0-2 /HPF (None Seen); WBC,URINE TOO NUMEROUS TO COUN /HPF (0-3)
== END 2019-08-27 16:21 | disposition home health service (06) | DRG 682 ==
LOC: ER 19:03 → EDSEX 19:03 → MED 08-21 00:27 → TELE1 08-25 18:03
PROVIDERS: ADMIT Nurse Practitioner Acute Care; ATTEND Nurse Practitioner Acute Care
DX: N17.0 Acute kidney failure with tubular necrosis (principal); G93.41 Metabolic encephalopathy; R40.2342 Coma scale, best motor response, flexion withdrawal, at arrival to emergency department; R40.2212 Coma scale, best verbal response, none, at arrival to emergency department; B37.49 Other urogenital candidiasis; E87.0 Hyperosmolality and hypernatremia; E44.0 Moderate protein-calorie malnutrition; D68.69 Other thrombophilia; Z68.1 Body mass index [BMI] 19.9 or less, adult; E11.22 Type 2 diabetes mellitus with diabetic chronic kidney disease; E11.65 Type 2 diabetes mellitus with hyperglycemia; E87.6 Hypokalemia; N18.9 Chronic kidney disease, unspecified; R62.7 Adult failure to thrive; E88.09 Other disorders of plasma-protein metabolism, not elsewhere classified; M62.50 Muscle wasting and atrophy, not elsewhere classified, unspecified site; Z74.01 Bed confinement status; E86.1 Hypovolemia; D63.8 Anemia in other chronic diseases classified elsewhere; I12.9 Hypertensive chronic kidney disease with stage 1 through stage 4 chronic kidney disease, or unspecified chronic kidney disease; B96.89 Other specified bacterial agents as the cause of diseases classified elsewhere; Z89.421 Acquired absence of other right toe(s); F03.90 Unspecified dementia, unspecified severity, without behavioral disturbance, psychotic disturbance, mood disturbance, and anxiety; R40.2142 Coma scale, eyes open, spontaneous, at arrival to emergency department; Z79.4 Long term (current) use of insulin
CPT/HCPCS: 36415; 70450-TC; 71045-TC; 80048-TC; 80053-TC; 80061-TC; 80076-TC; 81000-TC; 82140-TC; 82272-TC; 82550-TC; 82570-TC; 82728-TC; 82962-TC; 83615-TC; 83735-TC; 83970; 84100-TC; 84155; 84155-TC; 84165; 84300-TC; 84443-TC; 85025-TC; 85652-TC; 86140-TC; 87040-TC; 87081-TC; 87086-TC; 92526; 92611-TC; 97112-TC; 97530-TC; A4349; G0378; J1815; J2248; J2543; J3480; J3490; J7030; J7060; J7070